=== PATIENT | male | born 1965 | race Caucasian/White ===

== ENCOUNTER 2022-01-09 12:39 | Outpatient (CLI) | payer BC, SELFPAY ==
--- NOTE | 2022-01-09 13:00 | MR_ITS ---
[facility] [address] [address] Phone:?[phone] Fax:?[phone] Referring Physician Information: Ubaldo Sotomayor M.D. [id number] [address] Phone:?[phone] Fax:?[phone] Patient:?Belen Ann D.O.B:?1965 Sex:?Male Phone:?[phone] [facility] MRN:?[id number] Exam Date:?01/09/2022 ? EXAM:?MR LUMBAR SPINE WITHOUT CONTRAST CLINICAL INFORMATION: Persistent back pain for 6 months. COMPARISON: None.?CONTRAST:?None.?SEDATION:?None. TECHNICAL INFORMATION: Imaging was performed at [facility]. Sagittal and axial T1/ FSE T2, sagittal STIR and coronal T1 images were obtained through the lumbar spine. INTERPRETATION: L5-S1:?Advanced disc degeneration with active Modic 1 marrow reaction. A left- sided 4 mm disc protrusion abuts the dural sac and encroaches upon the left S1 root at its thecal sac origin. No central spinal stenosis and moderate foraminal stenosis with ganglion contact. L4-5: Normal disc height, no central or foraminal stenosis and unremarkable facet joints. L3-4: Disc degeneration with annular fissure and bulge without herniation or stenosis. Unremarkable facet joints. L1-2 and L2-3: Normal disc height and annular margins. No spinal stenosis or neural impingement. Osseous Structures: Fat suppressed images are negative for acute or subacute fractures. Paraspinous Soft Tissues: No mass lesions. Conus, Cord and Cauda Equina: Normal position conus and no evidence of intradural mass or arachnoiditis. CONCLUSION: 1. Severe L5-S1 disc degeneration with active Modic 1 marrow changes and 4 mm left posterolateral disc herniation encroaches upon the left S1 root. 2. Annular fissure and bulge at L3-4. 3. No central stenosis at any level. Electronically signed on 01/12/2022 8:16:00 AM by Simone Burkett M.D.
== END 2022-01-09 12:40 | disposition home or self-care (01) ==
LOC: MRI 12:40
PROVIDERS: PCP Family Medicine; Visit Provider Family Medicine
DX: M54.9 Dorsalgia, unspecified (principal); M51.37 Other intervertebral disc degeneration, lumbosacral region; M51.26 Other intervertebral disc displacement, lumbar region
CPT/HCPCS: 72148

== ENCOUNTER 2022-02-10 10:44 | Outpatient (CLI) | payer BC, SELFPAY ==
[2022-02-10 21:48] LABS: Albumin* 4.1 g/dL (3.3-5.0); Chloride* 104 mmol/L (96-114)
[2022-02-10 21:49] LABS: Potassium* 4.7 mmol/L (3.6-5.1); Sodium* 140 mmol/L (135-149)
[2022-02-10 21:51] LABS: Aspartate Amino Transferase* 25 U/L (12-35); Bilirubin Total* 0.6 mg/dL (0.1-1.5); Carbon Dioxide* 32 mmol/L (20-32); Cholesterol* 154 mg/dL (90-199); Estimated Glomerular Filt Rate 88 ml/min; Total Protein* 6.2 g/dL (6.0-8.3)
[2022-02-10 21:52] LABS: Alanine Aminotransferase* 32 U/L (4-50); Alkaline Phosphatase* 71 U/L (40-150); Blood Urea Nitrogen* 23 mg/dL (7-30); Calcium* 8.5 mg/dL (8.4-10.6); Glucose* 107 mg/dL (60-115); HDL Cholesterol* 41 mg/dL (>=40); LDL Cholesterol Calculated 100 mg/dL (<100); Triglycerides* 63 mg/dL (40-149)
[2022-02-10 22:19] LABS: PSA Screen* 1.82 ng/mL (0.10-4.00)
== END 2022-02-10 10:45 | disposition home or self-care (01) ==
PROVIDERS: PCP Family Medicine; Visit Provider Family Medicine
DX: Z00.00 Encounter for general adult medical examination without abnormal findings (principal); N40.0 Benign prostatic hyperplasia without lower urinary tract symptoms; R53.83 Other fatigue; M54.9 Dorsalgia, unspecified
CPT/HCPCS: 80053; 80061; 84153

== ENCOUNTER 2022-03-11 14:45 | Outpatient (RCR) | payer BC, SELFPAY | END 2022-09-10 23:59 | disposition home or self-care (01) | PROVIDERS: PCP Family Medicine; Visit Provider Family Medicine | DX: M54.50 Low back pain, unspecified (principal); M54.9 Dorsalgia, unspecified; Z51.89 Encounter for other specified aftercare | CPT/HCPCS: 97110; 97140; 97162 ==